=== PATIENT | male | born 1985 ===

== ENCOUNTER 2017-06-03 09:14 | Emergency (ER) | payer OTHER ==
[2017-06-03 09:32] VITALS: BMI 29.0
[2017-06-03 09:35] VITALS: TEMP 97.9
--- NOTE | 2017-06-03 10:04 | ED PDOC ---
Arrival/HPI - General Historian: Patient <David Lopez Jr. - Last Filed: 06/03/17 11:23> - General Historian: Patient - History of Present Illness Time/Duration: < week Symptom Onset: Sudden Symptom Course: Unchanged Context: Home <Hilary Livingston - Last Filed: 06/03/17 11:44> - General Chief Complaint: Headache Time Seen by Provider: 06/03/17 09:45 - History of Present Illness Narrative History of Present Illness (Text): 06/03/17 10:01 31 year old M with no significant Past medical history presents for left sided MERRITT that began 3 days ago. Patient states that he woke up with MERRITT 3 days ago and has been constant since then. MERRITT varies in intensity though. MERRITT is associated with numbness and tingling on right side of face and right side of tongue and nausea. Patient also complaining of left sided pain at site of TMJ. Patient denies having any numbness or tingling in his extremities. Patient took Tylenol for MERRITT on day 1 without much relief. Pt denies having any F/C, CP, SOB, vision changes, photophobia, vomiting. Patient does not have hx of MERRITT. (Hilary Livingston) Past Medical History - Provider Review Nursing Documentation Reviewed: Yes - Travel History Have you recently traveled outside [place] w/in the past 3 mons?: No - Infectious Disease Hx of Infectious Diseases: None - Psychiatric Hx Substance Use: No - Anesthesia Hx Anesthesia: No <Hilary Livingston - Last Filed: 06/03/17 11:44> Family/Social History - Physician Review Nursing Documentation Reviewed: Yes Family/Social History: No Known Family HX. denies: CVA/TIA Smoking Status: Never Smoked Hx Alcohol Use: Yes Frequency of alcohol use: Socially Hx Substance Use: No <Hilary Livingston - Last Filed: 06/03/17 11:44> Allergies/Home Meds <David Lopez Jr. - Last Filed: 06/03/17 11:23> <Hilary Livingston - Last Filed: 06/03/17 11:44> Allergies/Adverse Reactions: Allergies No Known Allergies Allergy (Verified 06/03/17 09:32) Home Medications: Home Meds Medication Instructions Recorded Confirmed No Known Home Med 08/16/17 08/16/17 Review of Systems - Review of Systems Constitutional: Normal. absent: Fatigue, Fevers Eyes: Normal. absent: Vision Changes, Photophobia, Eye Pain ENT: Normal, TMJ Pain. absent: Hearing Changes, Sore Throat, Rhinorrhea, Sinus Congestion Respiratory: Normal. absent: SOB, Cough, Sputum, Wheezing Cardiovascular: Normal. absent: Chest Pain, Palpitations, Edema, Calf Pain Gastrointestinal: Nausea. absent: Abdominal Pain, Constipation, Diarrhea, Vomiting Genitourinary Male: Normal. absent: Dysuria, Frequency, Hematuria Musculoskeletal: Normal. absent: Arthralgias, Back Pain, Neck Pain Skin: Normal. absent: Rash, Pruritis, Skin Lesions, Abscess Neurological: Headache (left sided ), Dizziness. absent: Focal Weakness, Gait Changes, Speech Changes, Facial Droop, Disequilibrium, Seizure Endocrine: absent: Diaphoresis, Polyuria Hemo/Lymphatic: Normal. absent: Adenopathy Psychiatric: Normal. absent: Anxiety, Depression <Karim,Hilary - Last Filed: 06/03/17 11:44> Physical Exam Vital Signs Reviewed: Yes Temperature: Afebrile Blood Pressure: Normal Pulse: Regular Respiratory Rate: Normal Appearance: Positive for: Well-Appearing, Non-Toxic, Comfortable Pain Distress: Moderate Mental Status: Positive for: Alert and Oriented X 3 - Systems Exam Head: Present: Atraumatic, Normocephalic Pupils: Present: PERRL. No: Sluggish, Non-Reactive Extroacular Muscles: Present: EOMI. No: Gaze Palsy Conjunctiva: Present: Normal Mouth: Present: Moist Mucous Membranes Pharnyx: Present: Uvular Deviation (to right side). No: ERYTHEMA, EXUDATE, Peritonsilar Swelling Nose (External): Present: Atraumatic Neck: Present: Normal Range of Motion, Trachea Midline. No: Meningeal Signs, MIDLINE TENDERNESS, Paraspinal Tenderness Respiratory/Chest: Present: Clear to Auscultation, Good Air Exchange. No: Respiratory Distress, Accessory Muscle Use, Wheezes, Rales, Rhonchi Cardiovascular: Present: Regular Rate and Rhythm, Normal S1, S2. No: Murmurs, Rub, Gallop, Muffled Abdomen: Present: Normal Bowel Sounds. No: Tenderness, Distention, Peritoneal Signs, Rebound, Guarding Upper Extremity: Present: Normal Inspection, Normal ROM, NORMAL PULSES, Neurovascularly Intact. No: Cyanosis, Edema Lower Extremity: Present: Normal Inspection, NORMAL PULSES, Neurovascularly Intact. No: Edema, CALF TENDERNESS Neurological: Present: GCS=15, CN II-XII Intact, Speech Normal, Motor Func Grossly Intact, Normal Sensory Function, Norm Deep Tendon Reflexes, Memory Normal, Normal 2Pt Descrimination Skin: Present: Warm, Dry, Normal Color. No: Rashes Psychiatric: Present: Alert, Oriented x 3, Normal Insight, Normal Concentration <Hilary Livingston - Last Filed: 06/03/17 11:44> Vital Signs Temp Pulse Resp BP Pulse Ox 06/03/17 11:14 64 18 132/79 98 06/03/17 09:34 97.9 F 62 17 136/89 98 Medical Decision Making <David Lopez Jr. - Last Filed: 06/03/17 11:23> - RAD Interpretation Shoe Cobbler: ED Physician <Hilary Livingston - Last Filed: 06/03/17 11:44> ED Course and Treatment: 06/03/17 11:23 In agreement with resident note, which includes further HPI details. Patient was seen and evaluated with resident, came up with plan and treatment together. (David Lopez Jr.) 06/03/17 10:12 31 year old M presents for left sided MERRITT ongoing for [address] of head without contrast Patient will get Tylenol 975 mg and reglan for the nausea 06/03/17 11:[address] of head is noted to be negative. (Hilary Livingston) - RAD Interpretation Narrative RAD Interpretations (Text): 06/03/17 11:12 CT of head is negative (Hilary Livingston) Radiology Orders: 06/03/17 10:23 HEAD W/O CONTRAST [CT] Stat - Medication Orders Current Medication Orders: Discontinued Medications Acetaminophen (Tylenol 325mg Tab) 975 mg PO STAT STA Stop: 06/03/17 10:24 Last Admin: 06/03/17 11:03 Dose: 975 mg Metoclopramide HCl (Reglan) 10 mg PO STAT STA Stop: 06/03/17 10:24 Last Admin: 06/03/17 11:03 Dose: 10 mg - PA / RADIOLOGIC ELECTRONIC SPECIALIST / Resident Statement / has reviewed & agrees with the documentation as recorded. / has examined the patient and agrees with the treatment plan. - Scribe Statement The provider has reviewed the documentation as recorded by the Scribe <David Lopez Jr. - Last Filed: 06/03/17 11:23> <Hilary Livingston - Last Filed: 06/03/17 11:44> - Scribe Statement 06/03/2017 Shantelle Hayden Provider Scribe Attestation: All medical record entries made by the Scribe were at my direction and personally dictated by me. I have reviewed the chart and agree that the record accurately reflects my personal performance of the history, physical exam, medical decision making, and the department course for this patient. I have also personally directed, reviewed, and agree with the discharge instructions and disposition. (David Lopez Jr.) Disposition/Present on Arrival <David Lopez Jr. - Last Filed: 06/03/17 11:23> - Present on Arrival Any Indicators Present on Arrival: No History of DVT/PE: No History of Uncontrolled Diabetes: No Urinary Catheter: No History of Decub. Ulcer: No History Surgical Site Infection Following: None - Disposition Have Diagnosis and Disposition been Completed?: Yes Disposition Time: 11:44 Patient Plan: Discharge <Hilary Livingston - Last Filed: 06/03/17 11:44> - Disposition Diagnosis: Headache Disposition: HOME/ ROUTINE Condition: GOOD Additional Instructions: Efe Rehman, thank you for letting us take care of you today. Your provider was Dr. Hilary Livingston. You were treated for headache. The emergency medical care you received today was directed at your acute symptoms. If you were prescribed any medication, please fill it and take as directed. It may take several days for your symptoms to resolve. Return to the Emergency Department if your symptoms worsen, do not improve, or if you have any other problems. Please contact your doctor or call one of the physicians/clinics you have been referred to that are listed on the Patient Visit Information form that is included in your discharge packet. Bring any paperwork you were given at discharge with you along with any medications you are taking to your follow up visit. Our treatment cannot replace ongoing medical care by a primary care provider (PCP) outside of the emergency department. Thank you for allowing the [facility] team to be part of your care today. If you had an X-Ray or CT scan: A Radiologist will review the ED reading if any change in treatment is needed we will contact you. If you had a blood, urine, or wound culture: It will take several days for the results, if any change in treatment is needed we will contact you. If you had an STI test: It will take 48 hours for the results. Please call after 1 week if you have not heard back. Referrals: PCP,NO [Primary Care Provider] - Follow up with primary Forms: [employer] ([place])
--- NOTE | 2017-06-03 10:49 | CT ---
PROCEDURE: CT HEAD WITHOUT CONTRAST. HISTORY: headache COMPARISON: None available. TECHNIQUE: Axial computed tomography images were obtained through the head/brain without intravenous contrast. Radiation dose: Total exam DLP = 734 mGy-cm. This CT exam was performed using one or more of the following dose reduction techniques: Automated exposure control, adjustment of the mA and/or kV according to patient size, and/or use of iterative reconstruction technique. FINDINGS: HEMORRHAGE: No intracranial hemorrhage. BRAIN: No mass effect or edema. No atrophy or chronic microvascular ischemic changes. VENTRICLES: Unremarkable. No hydrocephalus. CALVARIUM: Unremarkable. PARANASAL SINUSES: Unremarkable as visualized. No significant inflammatory changes. MASTOID AIR CELLS: Unremarkable as visualized. No inflammatory changes. OTHER FINDINGS: None. IMPRESSION: No acute findings
[2017-06-03 11:32] VITALS: BP 132/79; PULSE 64
[2017-06-03 11:51] VITALS: RESP 16; O2SAT 97
== END 2017-06-03 11:50 | disposition home or self-care (01) ==
LOC: ED 09:14
DX: R51 Headache (principal)

== ENCOUNTER 2019-03-01 10:34 | Emergency (ER) | payer OTHER ==
[2019-03-01 10:53] VITALS: BMI 28.1
--- NOTE | 2019-03-01 10:57 | ED PDOC ---
Arrival/HPI - General Chief Complaint: Male Genitourinary Time Seen by Provider: 03/01/19 10:38 Historian: Patient - History of Present Illness Narrative History of Present Illness (Text): 33 y/o male with no significant PMH presents to the ED c/o dysuria x 1 week. Associated intermittent white penile discharge. Pt is sexually active with 1 female partner and uses protection often but not consistently. Denies fever, chills, testicular pain/swelling, abdominal pain, hematuria, back pain, nausea, vomiting, SOB, rash, or any other associated symptoms. Past Medical History - Provider Review Nursing Documentation Reviewed: Yes - Infectious Disease Hx of Infectious Diseases: None - Psychiatric Hx Substance Use: No - Anesthesia Hx Anesthesia: No Family/Social History - Physician Review Nursing Documentation Reviewed: Yes Family/Social History: No Known Family HX Smoking Status: Never Smoked Hx Alcohol Use: Yes Hx Substance Use: No Allergies/Home Meds Allergies/Adverse Reactions: Allergies No Known Allergies Allergy (Verified 06/03/17 09:32) Review of Systems - Review of Systems Constitutional: Normal. absent: Fevers Eyes: Normal. absent: Vision Changes ENT: Normal. absent: Sore Throat Respiratory: Normal. absent: SOB, Cough Cardiovascular: Normal. absent: Chest Pain, Palpitations, Syncope Gastrointestinal: Normal. absent: Abdominal Pain, Nausea, Vomiting Genitourinary Male: Dysuria. absent: Frequency, Hematuria, Urinary Output Changes, Other (no testicular pain or swelling) Musculoskeletal: Normal. absent: Back Pain, Neck Pain Skin: Normal. absent: Rash Neurological: Normal. absent: Headache, Dizziness Physical Exam Vital Signs Reviewed: Yes Temperature: Afebrile Blood Pressure: Hypertensive Pulse: Regular Respiratory Rate: Normal Appearance: Positive for: Well-Appearing, Non-Toxic, Comfortable Pain Distress: None Mental Status: Positive for: Alert and Oriented X 3 - Systems Exam Head: Present: Atraumatic, Normocephalic Pupils: Present: PERRL Extroacular Muscles: Present: EOMI Conjunctiva: Present: Normal Mouth: Present: Moist Mucous Membranes Neck: Present: Normal Range of Motion Respiratory/Chest: Present: Clear to Auscultation, Good Air Exchange. No: Respiratory Distress, Accessory Muscle Use Cardiovascular: Present: Regular Rate and Rhythm, Normal S1, S2, Peripheal Pu lses Present Abdomen: No: Tenderness Genitourinary Male: Present: Normal External Genitalia. No: Penile Discharge, Testicle Tenderness, Penile Swelling, Masses, Erythema, Testicle Swelling Back: Present: Normal Inspection. No: CVA Tenderness Upper Extremity: Present: Normal Inspection, Normal ROM Lower Extremity: Present: Normal ROM Neurological: Present: GCS=15, Speech Normal, Motor Func Grossly Intact, Normal Sensory Function, Gait Normal Skin: Present: Warm, Dry, Normal Color. No: Rashes Psychiatric: Present: Alert, Oriented x 3, Normal Insight, Normal Concentration Medical Decision Making ED Course and Treatment: Initial Plan: * GC/Chlamydia * UA * Rocephin * Azithromycin UA shows trace leuk esterase with WBC. Will treat secondary to symptoms of dysuria. Will also treat empirically for GC/Chlamydia. Advised to abstain from sexual activity for one week and repeat testing to ensure clearance. Pt verbalized understanding, provided with urology followup. Diagnostic testing results and plan of care discussed with patient. Strict instructions given regarding prescription use, importance of followup, and signs/symptoms to return to ER including fever, abdominal pain, vomiting, or any other new/worsening symptoms. Pt verbalized understanding of discussion. Patient is A&Ox3, ambulating with steady gait, with vital signs stable for discharge. - Lab Interpretations Lab Results: Lab Results 03/01/19 11:15: Urine Color Yellow, Urine Appearance Clear, Urine pH 6.5, Ur Spe cific [place] 1.020, Urine Protein Trace H, Urine Glucose (UA) Negative, Urine Ketones Negative, Urine Blood Negative, Urine Nitrate Negative, Urine Bilirubin Negative, Urine Urobilinogen 0.2, Ur Leukocyte Esterase Trace H, Urine RBC 0 - 2, Urine WBC 5 - 10 H, Ur Epithelial Cells 0 - 2, Urine Bacteria Mod I have reviewed the lab results: Yes Disposition/Present on Arrival - Present on Arrival Any Indicators Present on Arrival: No History of DVT/PE: No History of Uncontrolled Diabetes: No Urinary Catheter: No History Surgical Site Infection Following: None - Disposition Have Diagnosis and Disposition been Completed?: Yes Diagnosis: UTI (urinary tract infection) Disposition: HOME/ ROUTINE Disposition Time: 11:30 Condition: STABLE Discharge Instructions (ExitCare): Chlamydia and Gonorrhea, Urinary Tract Infection, Adult (DC) Additional Instructions: Bactrim every 12 hours for 10 days Abstain from sexual activity for 1 week Call in 3-4 days for test results If test results are positive, inform partners so that they can get tested and treated Followup with primary doctor within 2 days Followup with urologist within 2 days Return to ER with any new/worsening symptoms Prescriptions: Sulfamethoxazole/Trimethoprim [Bactrim DS 800 mg-160 mg] 1 tab PO Q12H #20 tab Referrals: [facility] [Outside] - Follow up with primary Dimitri Cornejo MD [Staff Provider] - Follow up with primary Georgette Taylor MD [Medical Doctor] - Follow up with primary Forms: [employer] (French), WORK NOTE
[2019-03-01 10:59] VITALS: BP 153/85; PULSE 68; RESP 18; TEMP 97.9; O2SAT 99
[2019-03-01 11:27] LABS: PH,URINE 6.5 (4.7-8.0); URINE BILIRUBIN NEGATIVE (NEGATIVE); URINE BLOOD NEGATIVE (NEGATIVE); URINE GLUCOSE (UA) NEGATIVE (NEGATIVE); URINE LEUKOCYTE ESTERASE TRACE Leu/uL (NEGATIVE); URINE PROTEIN TRACE mg/dL (<30 mg/dL); URINE UROBILINOGEN 0.2 E.U./dL (<1 E.U./dL)
[2019-03-01 11:29] LABS: URINE APPEARANCE CLEAR (CLEAR); URINE COLOR YELLOW (YELLOW)
[2019-03-01 11:32] LABS: URINE BACTERIA MOD /hpf; URINE EPITHELIAL CELLS 0 - 2 /hpf (0-5); URINE RBC 0 - 2 /hpf (0-2)
[2019-03-01] MEDS ORDERED: cefTRIAXone (Rocephin) 250 mg Inj IM STA (11:32)
== END 2019-03-01 12:19 | disposition home or self-care (01) ==
LOC: ED 10:34
DX: N39.0 Urinary tract infection, site not specified (principal)
CPT/HCPCS: 81001; 87086; 87491; 87591; 96372; 99283; J0696